=== PATIENT | male | born 1965 | race Caucasian/White ===

== ENCOUNTER 2019-04-16 08:45 | Inpatient (IN) | payer OTHER ==
[~2019-04-16] VITALS: Ht 182.9 cm; Wt 76.0 kg
[~2019-04-16 08:45] MED LIST: ALBU18HF INH; SIMV10TA3 PO
[2019-04-23] MEDS ORDERED: VANCOMYCIN 1,000 MG ONE (06:29)
[2019-04-23] MEDS ORDERED: ROPIvacaine/PF 0.5%, 30 ML ONE (06:29)
[2019-04-23] MEDS ORDERED: KETOROLAC 60 MG/2 ML ONE (06:29)
[2019-04-23] MEDS ORDERED: SODIUM CHLORIDE 0.9% 50 ML ONE (06:29)
[2019-04-23] MEDS ORDERED: TRANEXAMIC ACID 100 MG/ML, 10ML ONE ×2 (06:29)
[2019-04-23] MEDS ORDERED: EPINEPHRINE 1 MG/ML, 1ML ONE (06:29)
[2019-04-23] MEDS ORDERED: MIDAZOLAM 1 MG/ML, 2ML ONE (07:34)
[2019-04-23] MEDS ORDERED: FENTANYL PF 250 MCG/5ML ONE (07:35)
[2019-04-23] MEDS ORDERED: ROCURONIUM 10MG/ML,5ML ONE (07:36)
[2019-04-23] MEDS ORDERED: DEXAMETHASONE 4 MG/ML, 1ML ONE ×2 (07:36→09:47)
[2019-04-23] MEDS ORDERED: CEFAZOLIN 1,000 MG ONE ×2 (07:36)
[2019-04-23] MEDS ORDERED: PROPOFOL 10 MG/ML, 20ML ONE (07:36)
[2019-04-23] MEDS ORDERED: ONDANSETRON 2MG/ML, 2ML ONE (07:36)
[2019-04-23 08:16] VITALS: BP 119/80
[2019-04-23] MEDS ORDERED: LACTATED RINGERS 1,000 ML IV SCH (08:22)
[2019-04-23] MEDS ORDERED: VANCOMYCIN PER PHARMACY MC ONE (08:24)
[2019-04-23] MEDS ORDERED: GABAPENTIN 300 MG CAPSULE PO ONE (08:30)
[2019-04-23] MEDS ORDERED: ACETAMINOPHEN 500 MG TABLET PO ONE (08:30)
[2019-04-23] MEDS ORDERED: VANCOMYCIN 1,500 MG in SODIUM CHLORIDE 0.9% 250 ML IV ONE (09:00)
[2019-04-23] MEDS ORDERED: FENTANYL PF 100 MCG/2ML IV PRN (09:30)
[2019-04-23] MEDS ORDERED: LORazepam 2 MG/ML, 1ML IVPush PRN (09:30)
[2019-04-23] MEDS ORDERED: OXYcodone 5 MG/5 ML ORAL.SOL UDC PO PRN (09:30)
[2019-04-23] MEDS ORDERED: ALBUTEROL SULFATE 2.5 MG/3 ML NPPB PRN ×2 (09:30→13:00)
[2019-04-23] MEDS ORDERED: METOCLOPRAMIDE 5 MG/ML, 2ML IV PRN (09:30)
[2019-04-23] MEDS ORDERED: ONDANSETRON 2MG/ML, 2ML IV PRN ×2 (09:30→10:00)
[2019-04-23] MEDS ORDERED: MEPERIDINE/PF 25MG/ML,1ML IVPush PRN (09:30)
[2019-04-23] MEDS ORDERED: LABETALOL 5MG/ML, 20ML IV PRN (09:30)
[2019-04-23] MEDS ORDERED: HYDROmorphone 2 MG/ML, 1ML IVPush PRN (09:30)
[2019-04-23] MEDS ORDERED: hydrALAzine 20 MG/ML, 1ML IV PRN (09:30)
[2019-04-23] MEDS ORDERED: NS + 20MEQ KCL 1,000 ML IV SCH (09:36)
[2019-04-23] MEDS ORDERED: OXYcodone IR 5MG TABLET PO PRN (10:00)
[2019-04-23] MEDS ORDERED: ACETAMINOPHEN 650 MG/20.3 ML UDC PO PRN (10:00)
[2019-04-23] MEDS ORDERED: ONDANSETRON 4 MG TABLET PO PRN (10:00)
[2019-04-23] MEDS ORDERED: MAGNESIUM HYDROXIDE 8%, 30ML UDC PO PRN (10:00)
[2019-04-23] MEDS ORDERED: ZOLPIDEM 5MG TABLET PO PRN (10:00)
[2019-04-23] MEDS ORDERED: BISACODYL 10 MG SUPP PR PRN (10:00)
[2019-04-23] MEDS ORDERED: DIPHENHYDRAMINE 50 MG CAPSULE PO PRN (10:00)
[2019-04-23] MEDS ORDERED: HYDROcodone/APAP 5/325 TABLET PO PRN (10:00)
[2019-04-23] MEDS ORDERED: SENNA/DOCUSATE TABLET PO PRN (10:00)
[2019-04-23] MEDS ORDERED: SCOPOLAMINE PATCH, 1.5MG PATCH.TD72 TD ONE (10:00)
[2019-04-23] MEDS ORDERED: GLYCOPYRROLATE 0.2MG/1ML, 5ML ONE (10:46)
[2019-04-23] MEDS ORDERED: NEOSTIGMINE 1 MG/ML, 10ML ONE (10:47)
[2019-04-23] MEDS ORDERED: FENTANYL PF 100 MCG/2ML ONE (11:22)
[2019-04-23] MEDS ORDERED: OXYcodone 5 MG/5 ML ORAL.SOL UDC ONE (11:22)
[2019-04-23] MEDS ORDERED: MEPERIDINE/PF 25MG/ML,1ML ONE (11:25)
[2019-04-23 12:20] VITALS: BP 105/71
[2019-04-23] MEDS ORDERED: CEFAZOLIN PMX 2GM/50ML 50 ML IVPB SCH (14:00)
[2019-04-23] MEDS ORDERED: ASPIRIN 81 MG TABLET EC PO SCH (18:00)
[2019-04-23] MEDS ORDERED: DOCUSATE 100 MG CAPSULE PO SCH (21:00)
[2019-04-23] MEDS ORDERED: SIMVASTATIN 10 MG TABLET PO SCH (21:00)
[2019-04-24] MEDS ORDERED: DEXAMETHASONE 4 MG/ML, 1ML IVPush SCH (06:00)
== END 2019-04-23 19:45 | disposition home or self-care (01) | DRG 470 ==
LOC: ORIP 04-23 07:49 → 4NE 04-23 12:15
PROVIDERS: ADMIT Orthopaedic Surgery; ATTEND Orthopaedic Surgery
PROC: 0SR906A Replacement of Right Hip Joint with Oxidized Zirconium on Polyethylene Synthetic Substitute, Uncemented, Open Approach (ICD-10-PCS; principal; 2019-04-23 09:30)
DX: M16.11 Unilateral primary osteoarthritis, right hip (principal); J45.909 Unspecified asthma, uncomplicated; E78.5 Hyperlipidemia, unspecified; Z82.61 Family history of arthritis; Z82.49 Family history of ischemic heart disease and other diseases of the circulatory system
CPT/HCPCS: 72170; 76000; C1713; G0378; J0171; J0690; J1100; J1885; J2250; J2405; J2704; J2710; J2795; J3010; J3370; C1776; J2175; J7050; J7120